=== PATIENT | male | born 1995 | race Two or more races ===

== ENCOUNTER 2017-02-08 13:08 | Emergency (ER) | payer BC ==
--- NOTE | 2017-02-08 14:38 | ER Document Report ---
ED General - General Chief Complaint: Ear Injury Stated Complaint: LEFT EAR PAIN Time Seen by Provider: 02/08/17 14:15 Mode of Arrival: Ambulatory Information source: Patient Notes: Patient is a 21-year-old dark skinned male comes to emergency room complaining of having multiple keloids on his left ear. Patient states that it has been this way for approximately a year and a half and is getting worse. States that it originally started by him attempting to place an earring in that ear and when he went to bed pulled the earring out and had a laceration to the lobe of the ear. States that he is wanting to get them cut off. Denies any other problems at this time. TRAVEL OUTSIDE OF THE [place] IN LAST 30 DAYS: No - HPI Onset: Other - 1.5 years Onset/Duration: Constant, Persistent Quality of pain: No pain Severity: Moderate Pain Level: 0 Associated symptoms: None Exacerbated by: Denies Relieved by: Denies Similar symptoms previously: Yes Recently seen / treated by doctor: No - Related Data Allergies/Adverse Reactions: No Known Allergies Allergy (Unverified 02/08/17 13:25) Past Medical History - Social History Smoking Status: Never Smoker Chew tobacco use (# tins/day): No Frequency of alcohol use: None Drug Abuse: None Occupation: agency sales development associate Lives with: Alone Family History: None Patient has suicidal ideation: No Patient has homicidal ideation: No Renal/ Medical History: Denies: Hx Peritoneal Dialysis Surgical Hx: Negative Review of Systems - Review of Systems Constitutional: No symptoms reported EENT: Other - Patient reports multiple growths on his left earlobe. These apparently are keloid secondary to his dark skin Cardiovascular: No symptoms reported Respiratory: No symptoms reported Gastrointestinal: No symptoms reported Genitourinary: No symptoms reported Male Genitourinary: No symptoms reported Musculoskeletal: No symptoms reported Skin: No symptoms reported, Other - Keloid left earlobe Hematologic/Lymphatic: No symptoms reported Neurological/Psychological: No symptoms reported -: Yes All other systems reviewed and negative Physical Exam - Vital signs Vitals: Temp Pulse Resp BP Pulse Ox 98.4 F 65 14 128/70 H 99 02/08/17 13:24 02/08/17 13:24 02/08/17 13:24 02/08/17 13:24 02/08/17 13:24 - Notes Notes: Patient is awake alert and oriented 4. Had no apparent distress. In no apparent pain. - General General appearance: Appears well, Alert - HEENT Ears: Other - Physical exam patient's left ear shows that he has multiple areas of volvulus keloids attached to the lower portion of his earlobe and ear. They also extend into the posterior portion of the ear as well. These are as stated large volvulus approximately 1/2 cm round. Nontender to touch. Firm to touch.. No: Normal - Respiratory Respiratory status: No respiratory distress Chest status: Nontender Breath sounds: Normal - Cardiovascular Rhythm: Regular Heart sounds: Normal auscultation Murmur: No - Neurological Cognition: Normal Orientation: AAOx4 Benjamin Coma Scale Eye Opening: Spontaneous Benjamin Coma Scale Verbal: Oriented Mamou Coma Scale Motor: Obeys Commands Mamou Coma Scale Total: 15 - Skin Skin Moisture: Dry Skin Color: [place], Other - As stated earlier patient has multiple keloids. See ear in physical exam. Course - Vital Signs Vital signs: Temp Pulse Resp BP Pulse Ox 98.4 F 65 14 128/70 H 99 02/08/17 13:24 02/08/17 13:24 02/08/17 13:24 02/08/17 13:24 02/08/17 13:24 - Transfer of Care Notes: 02/08/17 15:01 I had a discussion with patient about his situation with the keloids on his left ear. I explained to him that this is something we will definitely not work on here in ER since is not emergent kind of situation. I have informed him that the best bet that he has is to see a general surgeon have it evaluated and possibly have them cut out surgically to minimize the return of keloids. Currently she does not have a primary care physician so I will give him a surgical referral to our general surgeon search engine optimization analyst. Explained to him and contact the office and see if we can accommodate him. Patient voiced understanding of the situation. Discharge - Discharge Clinical Impression: Cheloid Condition: Stable Disposition: HOME, SELF-CARE Additional Instructions: As of explained to you given your history of having dark skin keloids are a possibility any time you have a skin issue such as surgical removal of lesion and or any type of traumatic event that opens the skin. At this time there is nothing for us to do here in the emergency room for this. I am giving you the name of the general surgeon on-call may contact his office to see if we can accommodate you. Should you have any concerns or problems return to ER for a recheck. Forms: Elevated Blood Pressure Referrals: TETO TIERNEY MD [SERENA BLACKMAN] - Follow up as needed
[2017-02-08 15:13] VITALS: BP 119/67
== END 2017-02-08 15:15 | disposition home or self-care (01) ==
LOC: ER 13:08
DX: L91.0 Hypertrophic scar (principal)
CPT/HCPCS: 99282